=== PATIENT | male | born 1995 | race Caucasian/White ===

== ENCOUNTER 2024-11-19 20:18 | Emergency (ER) | payer OTHER, SELFPAY ==
[2024-11-19 20:45] VITALS: BP 111/62; PULSE 120; RESP 18; TEMP 37.3; O2SAT 100
[2024-11-19 21:27] LABS: Strep Group A RT-PCR NOT DETECTED (Negative)
[2024-11-19 21:37] VITALS: O2SAT 100
[2024-11-19 21:38] LABS: Influenza A QL RT-PCR Negative (Negative); Influenza B QL RT-PCR Negative (Negative); RSV RNA, RT-PCR Negative (Negative); SARS-CoV-2 RNA PCR Negative (Negative)
--- OUTSIDE RECORDS SUMMARY | 2024-11-19 21:58 | XMS_ITS | Clinical Summary ---
Author Organization [facility] Address [address] [place] [address] Care Team Providers Care Director Of Vocational Guidance Name Role Phone Gabby Miranda MD, Ponce Primary Care Provider Social History Tobacco Use Types Packs/Day Years Used Date Smoking Tobacco: Never Assessed Sex and Gender Information Value Date Recorded Sex Assigned at Not on file Legal Sex Male 8:11 PM CDT Gender Identity Not on file Sexual Orientation Not on file Plan of Treatment Health Maintenance Due Date Last Done Comments Annual Physical 02/06/1996 Hepatitis C 2011 DTaP, Tdap and Td Vaccines ( 1 - Tdap) 02/06/2012 Hepatitis B Vaccines (1 of 3 - 19+ 3-dose series) 02/06/2012 COVID-19 Vaccine (2023-2 5 season) 2024 Influenza Adult (#1) 2024 HPV Vaccines Aged Out No longer eligi ble based on patient's age to complete this topic Meningococcal B Vaccine Aged Out No l onger eligible based on patient's age to complete this topic Meningococcal Vaccine Aged Out No ese gil eligible based on patient's age to complete this topic Pneumococcal Vaccine: Pediat rics (0 to 5 Years) and At-Risk Patients (6 to 64 Years) Aged Out No longer eligible b ased on patient's age to complete this topic RSV Immunizations Under 20 Months Aged Out No longer eligible based on patient's age to complete this topic Care Teams Director Of Vocational Guidance Relationship Specialty Start Date End Date Ponce Pierre MD [address] [address] PCP - General 11/15/11
--- OUTSIDE RECORDS SUMMARY | 2024-11-19 21:58 | XMS_ITS | Encounter Summary ---
Author Name [facility] Organization [facility] [place] Address [address] [place] [address] Care Team Providers Care Physician Assistant Name Role Phone BARBARA BAH Primary Care Provider Unavailab le Selected Encounter This section includes the information on record at OR for the Encounter. Date/Time Encounter Type Encounter Description Reason Pro vider Source Jun 27, 2024 02:42 PM Outpatient Encounter COMMUNITY CARE CONSULT IHE Encounter Template Text not used by OR Plan of Treatment: Future Appointments (+ 6 months) and Future Tests (+/- 45 days) The Plan of Treatment section includes future care activities for the patient from all OR treatmentfacilities. This section includes future appointments and future orders which are active, pending or scheduled. Future Appointments This section includes appointments that were scheduled to occur 6 months from the date of the Encounter, up to a maximum of 20 appointments. The data comes from all OR treatment facilities. Appointment Date/Time Appointment Type Appointme nt Facility Name Jul 11, 2024 09:30 AM AMBULATORY - MEDICINE . [facility] Sep 05, 2024 11:00 AM AMBULATORY - NONE [facility] Sep 27, 2024 09:30 AM AM[facility]ULATORY - SUR[facility]ERY [facility] Oct 04, 2024 11:30 AM [facility]UL[facility] Oct 27, 2024 09:30 AM [facility]ULATORY - [facility] Nov 09, 2024 12:30 PM AMBULATORY - SURGERY [facility] Dec 21, 2024 12:30 PM AMBULATORY - SURGERY [facility] Social History: Smoking Status (Most current) and Tobacco Use (All prior to encounter date) This section includes the most current, and the historical, smoking and tobacco- related health factors from the OR facility where the Encounter took place. Current Smoking Status This section includes the most current smoking, or tobacco-related health factor, from the OR facility where the Encounter took place. Date/Time Current Smoking Status Comment Facil ity Jan 23, 2023 01:36 PM VA-TOBACCO NEVER USED [facility] Advance Directives: All historical and current Section Date Range: From patient's date of to the date document was created. This section includes ALL of a patient's completed or amended [place] Advance and Rescinded Directives. The entries below indicate that a directive exists for the patient, but an actual copy is not included with this document. The data comes from all OR facilities. Date Advance Directives Provider Source Aug 30, 2021 ADVANCE DIRECTIVE KURTIS CHACON Lavell [facility] Encounter Notes: All associated encounter notes This section contains the clinical notes associated to the Encounter. Date/Time Encounter Note(s) Provider Source Jun 27, 2024 02:42 PM LETTERS: LOCAL TITLE: [facility]-REQUEST FOR SERVICES (RFS) LETTER ST STANDARD TITLE: LETTERS DATE OF NOTE: JUN 27, 2024@14:42 ENTRY DATE: JUN 27, 2024@14:42:08 AUTHOR: XAVIER MORRELL COSIGNER: URGENCY: STATUS: COMPLETED [facility] [address] [place] [address] [facility] [address] [place] [address] Dear Provider, Information: Patient Name: ERNST OLVERA Date of : Jan [facility] Dental Service has received the request [id number] 01 PERIO MAINTENANCE D1206 01 TOPICAL APPLICATION OF FLUORIDE VARNISH D0274 01 BITEWING-FOUR RADIOGRAPHIC IMAGES D0120 01 PERIO ORAL EVAL-EST PT from you for services that were not originally authorized in the [facility] Administration for this . Upon review, the following determination has been made: Service has been approved. (Authorization #[id number]) Should you have questions, please contact us at [phone] to speak with a patient family service caseworker. As a reminder, if applicable, return medical records within 30 days for routine services. Sincerely, XAVIER MORRELL [facility] X[facility]IER RE[facility]
--- OUTSIDE RECORDS SUMMARY | 2024-11-19 21:58 | XMS_ITS | Continuity of Care Document ---
Author Organization [facility] Address [address] [place] [address] Phone Care Team Providers Care Skilled Nursing Facility Counselor Name Role Phone Shekhar Alvarez Unavailable Unavailable Allergies, Adverse Reactions, Alerts Substance Reaction Status Criticality No Known Allergies Active No Inform ation Medications Medication Instructions Dosage Effective Dates (start - stop) Status Comments cyclobenzaprine 5 mg tablet take 1 (5MG) by Oral route 3 times every day as needed for spasm 5 MG - Active Phenergan 12.5 MG take 1 tablet every 8 hours if needed for nausea - Active Percocet 5 mg-325 mg tablet take 1 to 2 tablets by oral route every 4 - 6 hours as needed - Active Do not fill before 12/16/2017 naproxen 375 mg tablet take 1 tablet by oral route 2 times every day with food 375 MG - Active naproxen 250 mg tablet take 1 tablet by oral route every day with food 250 MG - Active Procedures Procedure Date Global/Post-op Global/Post-op Global/Post-op Arthroscopy Shoulder Debridement Ex Interest Pd By Ins. Co. Arthroscopy Shoulder Debridement Ex Est. Patient Level 3 Est. Patient Level 3 Arthrocentesis/joint Inj. Major 018 Inj Methylprednisolone Acetate,80mg New Patient Ov Level 3 Shoulder (2 Views) Advance Directives Directive Yes / No Effective Date File Name No Information Encounters Encounter Description Practice Location Reason(s) For Visit Diagnoses Date Provider Providers Copied on Encounter [facility], [address] [place] [address], [id number], [place] tel:[phone] MIL [facility] Encounter for other orthopedic aftercare 3-201 8 [place] PAC Shekhar. [address], [place], [place], [id number] , [place]. tel:[phone] Referring Provider: Payton Anderson MD, [address] [place], [address] . tel:[phone] [facility], [address] [place] [address], [id number], [place] tel:[phone] [address] [facility] [address] Encounter for other orthopedic aftercare 0201 8 Monica PINEDA Payton. [address] [place], [place], [id number] , [place]. tel: [phone] Referring Provider: Payton Anderson MD, [address] [place], [address] . tel:[phone] [facility], [address] [place] [address], [id number], [place] tel:[phone] 01 MIL [facility] Encounter for other orthopedic aftercare 2201 8 Jigar PAC Shekhar. [address], [place], [place], [id number] , [place]. tel: [phone] Referring Provider: Payton Anderson MD, [address] [place], [address] . tel:[phone] [facility], [address] [place] [address], [id number], [place] tel:[phone] 01 MIL [place] Pain in right shoulder 9-201 8 Jigar PAC Shekhar. [address], [place], [place], [id number] , [place]. tel: [phone] Referring Provider: Payton Anderson MD, [address] [place], [address] . tel:[phone] [facility], [address] [place] [address], [id number], [place] tel:[phone] 01 MIL [place] No Information 9-201 8 Monica PINEDA Payton. [address] [place], [place], [id number] , [place]. tel: [phone] Referring Provider: Payton Anderson MD, [address] [place], [address] . tel:[phone] [facility], [address] [place] [address], [id number], [place] tel:[phone] 01 MIL [place] No Information 8-201 8 Monica PINEDA Payton. [address] [place], [place], [id number] , [place]. tel: [phone] Est. Patient Level 3 [facility], [address] [place] [address], [id number], [place] tel:[phone] 01 MIL O[place] Bicipital tendinitis, right shoulderPain in right shoulder Apr-0 6201 8 Monica PINEDA Payton. [address] [place], [place], [id number] , [place]. tel: [phone] Referring Provider: Payton Anderson MD, [address] [place], [address] . tel:[phone] Est. Patient Level 3 [facility], [address] [place] [address], [id number], [place] tel:[phone] 01 MIL [place] Pain in right shoulderBicipit al tendinitis, right shoulder Oct- 6-201 8 Monica PINEDA Payton. [address] [place], [place], [id number] , [place]. tel: [phone] Referring Provider: Payton Anderson MD, [address] [place], [address] . tel:[phone] New Patient Ov Level 3 [facility] [place], [address] [facility] [facility], [place], [place], [id number], [place] tel:[phone] 01 MIL [place] Pain in right shoulder 8 Monica Cain. [address] [place], [place], [id number] , [place]. tel: [phone] Referring Provider: Payton Anderson MD, [address] [place], [address] . tel:[phone] Family History Family Member Type Diagnosis Age At Onset No Information Payers Payer name Insurance type Covered constitution party ID Authoriza tion(s) No Information Social History Type Description Quantity Date Captured Comments Sex Male Smoking Status No Information Chief Complaint And Reason For Visit No Information Reason For Referral Reason For Referral No Information Plan Of Treatment Date Type Action Status Future Order: Lab Order Shoulder -RT-AP/Outlet/Axillary ([id number]), Appointment on: , Sent on: Sent History Of Present Illness Encounter Date Complaint History Of Prese nt Illness No Information Functional Status Date Functional Assessmen t No Information Instructions Date Instruction Additional Infor mation No Information Assessments Type Assessment Date No Information Patient Care Teams Name Effective Dates (start - stop) Status Members No Information
--- OUTSIDE RECORDS SUMMARY | 2024-11-19 21:58 | XMS_ITS | Encounter Summary ---
Author Name [facility] Organization [facility] [place] Address [address] [place] [address] Care Team Providers Care Pocket Stitcher Name Role Phone BARBARA BAH Primary Care Provider Unavailab le Selected Encounter This section includes the information on record at [place] for the Encounter. Date/Time Encounter Type Encounter Description Reason Pro vider Source Sep 30, 2024 06:09 AM Outpatient Encounter GENERAL INTERNAL MEDICINE IHE Encounter Template Text not used by [place] Plan of Treatment: Future Appointments (+ 6 months) and Future Tests (+/- 45 days) The Plan of Treatment section includes future care activities for the patient from all [place] treatmentfacilities. This section includes future appointments and future orders which are active, pending or scheduled. Future Appointments This section includes appointments that were scheduled to occur 6 months from the date of the Encounter, up to a maximum of 20 appointments. The data comes from all [place] treatment facilities. Appointment Date/Time Appointment Type Appointme nt Facility Name Oct 04, 2024 11:30 AM AMBULATORY - SURGERY [facility] Oct 27, 2024 09:30 AM AMBULATORY - SURGERY [facility] Nov 09, 2024 12:30 PM AMBULATORY - SURGERY [facility] Dec 21, 2024 12:30 PM AMBULATORY - SURGERY . [facility] Feb 01, 2025 10:30 AM AMBULATORY - SURGERY [facility] Active, Pending, and Scheduled Orders This section includes a listing of several types of active, pending, and scheduled orders, including clinic medications orders, diagnostic test orders, procedure orders and consult orders; where the start date of the order is 45 days before the date of the Encounter or 45 days after the date of theEncounter. The data comes from all [place] treatment facilities. Test Date/Time Test Type Test Details Facility Name Nov 10, 2024 07:59 AM Consult Order [facility] GEN Cons Supervisor Un[employer] Choice [facility] Lab Results: +/- 30 days of the encounter This section includes the Chemistry and Hematology Lab Results on record with [place] for the patient. Radiology Reports and Pathology Reports are provided separately, in subsequent sections. Lab Results This section contains the Chemistry/Hematology Results that were resulted 30 days before or 30 daysafter the date of the Encounter. Date/Time Source Result Type Result - Unit Interpretation Reference Range Comment Sep 27, 2024 10:14 AM [facility] BOB(STL) Specimen Type: SERUM Comment: Test Performed by [facility], [employer], [address] [place] [address] Austin Joseph M.D., Ph.D., Director of Laboratories , CLIA [id number] Ordering Provider: RENE BECK Report Released Date/Time: Sep 27, 2024 10:03 AM Reporting Lab: [facility] [address] [facility] [address] Performing Lab: [facility] [address] [facility] BOB(STL) 30 U/L 9-Sep 27, 2024 10:14 AM [facility] HLA B27 Ag Specimen Type: BLOOD Comment: Test Performed by [facility], [employer], [address] [place] [address] Austin Joseph M.D., Ph.D., Director of Laboratories , CLIA [id number] Ordering Provider: RENE BECK Report Released Date/Time: Sep 27, 2024 10:03 AM Reporting Lab: [facility] [address] [place] [address] Performing Lab: [facility] [address] [facility] [address] HLA B27 Ag Negative Negative Sep 27, 2024 10:14 AM [facility] ANTI-NUCLEAR ANTIBODY (STL-PB) Specimen Type: SERUM No comment entered. Ordering Provider: RENE BECK Report Released Date/Time: Sep 27, 2024 10:03 AM Reporting Lab: [address] [address] Performing Lab: [address] [address] ANTI-NUCLEAR ANTIBODY (STL-PB) NEGATIVE Sep 27, 2024 10:14 AM [facility] SERODIA TP-PA Specimen Type: SERUM No comment entered. Ordering Provider: RENE BECK Report Released Date/Time: Sep 27, 2024 10:03 AM Reporting Lab: [facility] [address] [place] [phone] Performing Lab: [address] [address] SERODIA TP-PA Non React Sep 27, 2024 10:14 AM [facility] RAPID PLASMA REAGIN (RPR) Specimen Type: SERUM No comment entered. Ordering Provider: RENE BECK Report Released Date/Time: Sep 27, 2024 10:03 AM Reporting Lab: [address] [address] Performing Lab: [address] [address] RAPID PLASMA REAGIN (RPR) NON-REACTIVE NONREACTIVE Sep 27, 2024 10:14 AM [facility] LYME AB PNL (IGM&IGG) Specimen Type: SERUM No comment entered. Ordering Provider: RENE BECK Report Released Date/Time: Sep 27, 2024 10:03 AM Reporting Lab: [facility] [address] [facility] [address] Performing Lab: [facility] [address] [facility] [address] LYME AB IGM NEG NEGATIVE LYME AB IGG NEG NEGATIVE Sep 27, 2024 10:14 AM [facility] ESR ISED(STL) Specimen Type: BLOOD No comment entered. Ordering Provider: RENE BECK Report Released Date/Time: Sep 27, 2024 10:03 AM Reporting Lab: [facility] [place] [address] Performing Lab: [facility] [address] ESR ISED(STL) <1 mm/h 0-14 Sep 27, 2024 10:14 AM [facility] CRP Specimen Type: PLASMA No comment entered. Ordering Provider: RENE BECK Report Released Date/Time: Sep 27, 2024 10:03 AM Reporting Lab: [facility] [address] [place] [phone] Performing Lab: [facility] [address] [place] [phone] CRP 0.2 mg/dL 0-0.5 Sep 27, 2024 10:14 AM [facility] RHEUMATOID FACTOR (STL) Specimen Type: SERUM No comment entered. Ordering Provider: RENE BECK Report Released Date/Time: Sep 27, 2024 10:03 AM Reporting Lab: [facility] [address] [place] [phone] Performing Lab: [address] [address] RHEUMATOID FACTOR (STL) <15.0 0-29 Sep 27, 2024 10:14 AM [facility] CBC Specimen Type: BLOOD No comment entered. Ordering Provider: RENE BECK Report Released Date/Time: Sep 27, 2024 10:03 AM Reporting Lab: [facility] [address] Performing Lab: [facility] [address] WBC 5.6 10*3/uL 3.6-11.2 RBC 4.96 10*6/uL 4.10-5.70 HGB 15.0 g/dL 13.1-16.8 HCT 43.3 38.2-48.4 MCV 87.3 fL 80.0-100.0 MCH 30.2 pg 27.0-34.0 MCHC 34.6 g/dL 33.0-36.0 PLT 185 10*3/uL 150-400 MPV 9.6 fL 7.5-11.2 RDW 11.8 11.8-15.1 LYMPHOCYTES, AUTO % 37 MONOCYTES, AUTO % 6 NEUTROPHILS, AUTO % 55 EOSINOPHILS, AUTO % 1 BASOPHILS, AUTO % 1 LYMPHOCYTES, ABSOLUTE 2.06 10*3/uL 0.77-4.50 MONOCYTES, ABSOLUTE 0.31 10*3/uL 0.19-0.80 NEUTROPHILS, ABSOLUTE 3.08 10*3/uL 2.10-8.00 EOSINOPHILS, ABSOLUTE 0.06 10*3/uL 0.00-0.60 BASOPHILS, ABSOLUTE 0.04 10*3/uL 0.00-0.20 Social History: Smoking Status (Most current) and Tobacco Use (All prior to encounter date) This section includes the most current, and the historical, smoking and tobacco- related health factors from the [place] facility where the Encounter took place. Current Smoking Status This section includes the most current smoking, or tobacco-related health factor, from the [place] facility where the Encounter took place. Date/Time Current Smoking Status Comment Facil ity Jan 23, 2023 01:36 PM VA-TOBACCO NEVER USED [facility] Advance Directives: All historical and current Section Date Range: From patient's date of to the date document was created. This section includes ALL of a patient's completed or amended [place] Advance and Rescinded Directives. The entries below indicate that a directive exists for the patient, but an actual copy is not included with this document. The data comes from all [place] facilities. Date Advance Directives Provider Source Aug 30, 2021 ADVANCE DIRECTIVE KURTIS CHACON Lavell [facility] Encounter Notes: All associated encounter notes This section contains the clinical notes associated to the Encounter. Date/Time Encounter Note(s) Provider Source May 19, 2024 06:09 AM NONVA CONSULT: LOCAL TITLE: COMMUNITY CARE-CONSULT RESULT NOTE STL STANDARD TITLE: NONVA CONSULT DATE OF NOTE: MAY 19, 2024@06:09 ENTRY DATE: SEP 30, 2024@06:10:16 AUTHOR: DANIELLE DAVIS EXP COSIGNER: URGENCY: STATUS: COMPLETED The following Community Care consult has been completed. See scanned document for report. Date of Service: Apr Place where service occurred: [facility] Community Care Consult Results Dental Comment: General Community provider/Non-VA documentation associated with this consult has been previously incorporated into the medical record and is currently linked to the following progress note in CPRS: Note Title: COMMUNITY CARE-CONSULT RESULT NOTE STL Date of Note: 05/19/2024 Author: KIMO TINOCO Consult Number: [id number] /es/ DANIELLE DAVIS [facility] CORPORATE SERVICES MANAGER Signed: 09/30/2024 06:12 DANIELLE DAVIS [facility]
--- OUTSIDE RECORDS SUMMARY | 2024-11-19 21:58 | XMS_ITS | Continuity of Care Document ---
Author Name [facility] Organization [facility] Care Team Providers Care Hand Crocheter Name Role Phone [facility] Unavailable Unavailable Problems Combined list of problems from [facility] and [facility] facilities. It does not include entries that were removed or entered in error. 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, right eye Active Diagnosis [facility] Diagnosis: ICD-10-CM Z23 Encounter for immunization Active Diagnosis [facility] Diagnosis: ICD-10-CM Z71.9 Counseling, unspecified Active Diagnosis [facility] Diagnosis: ICD-10-CM H52.4 Presbyopia Active Diagnosis [facility] Diagnosis: ICD-10-CM J02.0 Streptococcal pharyngitis Active Diagnosis [facility] Diagnosis: ICD-10-CM Z20.822 Contact with and (suspected) exposure to COVID-19 Active Diagnosis [facility] Diagnosis: ICD-10-CM H53.9 Unspecified visual disturbance Active Diagnosis [facility] Medications Combined list of outpatient medications from [facility] and [facility] facilities.Medications provided include 1) outpatient medications from the last 15 months, and 2) patient-reported medications. Medication Details Route Status Patient Instructions Prescription Expires Prescription Number Last Dispense Date Ordering Provider Order Date Order Qty Source ALUMINUM CL HEXAHYDRATE 20% SOLN,TOP APPLY SPARINGL Y TO AFFECTED AREA(S) ONCE A DAY NEEDED TOPICA L 02/27/2024 [id number] ARANZA LUCAS A 2022 35 [facility] AMOXICILLIN TRIHYDRATE 500MG CAP TAKE 1 CAPSULE BY MOUTH THREE TIMES A DAY ORAL ACTIVE LAMBERTO HOPKINS MERRITT Morel 2023 [facility] FLUOROMETHO LONE 0.1% SUSP,OPH INSTILL 1 DROP IN RIGHT EYE FOUR TIMES A DAY FOR OCULAR INFLAMMA TION - APPLY TO INSIDE OF LOWER LID. CLOSE EYE FOR 1-2 MINUTES AND ROLL EYEBALL IN ALL DIRECTIO NS. OPHTHA LMIC 10/27/2024 [id number] 5 LOYDA BECK THI 2024 10 [facility] PREDNISOLON E ACETATE 1% SUSP,OPH INSTILL 1 DROP IN RIGHT EYE FOUR TIMES A DAY FOR EYE INFLAMMA TION OPHTHA LMIC 11/24/2023 [id number] 4 ADELINE LOJA E 2023 10 [facility] Allergies, Adverse Reactions, Alerts Combined list of allergies from [facility] and [facility] facilities. It does not include entries that were removed or entered in error. Substance Category Reaction Severity Reaction type Status Date Reported Comments Source SEASONAL ALLERGIES Propensity to adverse reaction (finding) active 8 [facility] Immunizations Combined list of available immunizations from the Department of Defense and Veterans Affairs facilities. Immunization Series Date Given Administered By Site Reaction Lot Number CVX Code Drug Golf Instructor Status Comments Source COVID-19 (PFIZER), MRNA, LNP-S, PF, JOHANNA-SUCROSE, 30 MCG/0.3 ML (AGES 12+ YEARS) 2023 RED DEL CID RIGHT DELTO ID [id number] 309 complet ed [facility] INFLUENZA, SPLIT VIRUS, TRIVALENT, PF 2023 RED DEL CID LEFT DELTO ID [id number] 140 complet ed [facility] TDAP 2020 115 complet ed [facility] INFLUENZA, INJECTABLE, MDCK, PRESERVATIVE FREE, QUADRIVALENT 2020 171 complet ed Partner:Roland PARKSiva.Admin istered by:[facility] [id number]) .[facility]:[id number].A ddress:[address] [facility] .[id number] Dosage: ML 0.5 [facility] COVID-19 (MODERNA), MRNA, LNP-S, PF, 100 MCG/0.5 ML DOSE 2 2020 207 complet ed MOD; [id number]; 1 [facility] COVID-19 (MODERNA), MRNA, LNP-S, PF, 100 MCG/0.5 ML DOSE 1 2020 207 complet ed MOD; [id number]; 1 [facility] INFLUENZA, INJECTABLE, QUADRIVALENT, PRESERVATIVE FREE 2018 150 complet ed [facility] HPV9 2 2018 165 complet ed [facility] HPV (PAPILLOMAVIR US-GARDISIL) (HISTORICAL) 2018 62 complet ed [facility] INFLUENZA, INJECTABLE, QUADRIVALENT, PRESERVATIVE FREE 2017 150 complet ed [facility] HPV, UNSPECIFIED FORMULATION 1 2014 137 complet ed [facility] Results Combined list of recent chemistry, hematology and other laboratory results from [facility] of Defense and [facility], ranging from 15 months to all on record, depending upon the facility. Order Name Results Value Reference Range Date Interpretation Specimen Comments Source ANCA/Vas culitide s (STL) MYELOPEROX IDASE AB [PRESENCE] IN SERUM BY IMMUNOASSA Y NEGATIVE 11/09 Specimen Type: SERUM No comment entered. Ordering Provider: YEFRI ZAMBRANO Report Released Date/Time: Nov 09, 2024 01:13 PM Reporting Lab: [facility] [address] [place] [address] Performing Lab: [facility] [address] [address] [facility] ANCA/Vas culitide s (STL) PROTEINASE 3 AB [PRESENCE] IN SERUM BY IMMUNOASSA Y POSITIVE 11/09 Specimen Type: SERUM No comment entered. Ordering Provider: YEFRI ZAMBRANO Report Released Date/Time: Nov 09, 2024 01:13 PM Reporting Lab: [address] Performing Lab: [place] [id number] HLA B27 Ag HLA-B27 [PRESENCE] BY FLOW CYTOMETRY (FC) Negative 09/27 Specimen Type: BLOOD Comment: Test Performed by [employer] [facility], [address] [place] [address] Austin Joseph M.D., Ph.D., Director of Laboratorie s , CLIA [id number] Ordering Provider: JFEFREY BECK Report Released Date/Time: Sep 27, 2024 10:03 AM Reporting Lab: [address] [address] Performing Lab: [address] [facility] BOB(STL) ANGIOTENSI N CONVERTING ENZYME [ENZYMATIC ACTIVITY/V OLUME] IN SERUM OR PLASMA 30 U/L 9 - 67 09/27 Specimen Type: SERUM Comment: Test Performed by [employer] [facility], [address] [place] [address] Austin Joseph M.D., Ph.D., Director of Laboratorie s , CLIA [id number] Ordering Provider: JEFFREY BECK Report Released Date/Time: Sep 27, 2024 10:03 AM Reporting Lab: [address] [address] Performing Lab: [address] [facility] ANTI-NUC LEAR ANTIBODY (STL-PB) NUCLEAR AB [PRESENCE] IN SERUM NEGATIVE 09/27 Specimen Type: SERUM No comment entered. Ordering Provider: JEFFREY BECK Report Released Date/Time: Sep 27, 2024 10:03 AM Reporting Lab: [address] [address] Performing Lab: [place] [id number] SERODIA TP-PA TREPONEMA PALLIDUM AB [PRESENCE] IN SERUM Non React 09/27 Specimen Type: SERUM No comment entered. Ordering Provider: JEFFREY BECK Report Released Date/Time: Sep 27, 2024 10:03 AM Reporting Lab: [place] [phone] Performing Lab: [place] [id number] RAPID PLASMA REAGIN (RPR) REAGIN AB [PRESENCE] IN SERUM BY RPR NON-REAC TIVE 09/27 Specimen Type: SERUM No comment entered. Ordering Provider: JEFFREY BECK Report Released Date/Time: Sep 27, 2024 10:03 AM Reporting Lab: [address] [address] Performing Lab: [address] [phone] [address] LYME AB PNL (IGM&IGG ) BORRELIA BURGDORFER I IGM AB [PRESENCE] IN SERUM OR PLASMA BY IMMUNOASSA Y NEG 09/27 Specimen Type: SERUM No comment entered. Ordering Provider: JEFFREY BECK Report Released Date/Time: Sep 27, 2024 10:03 AM Reporting Lab: [address] [address] Performing Lab: [address] [phone] LYME AB PNL (IGM&IGG ) BORRELIA BURGDORFER I IGG AB [PRESENCE] IN SERUM OR PLASMA BY IMMUNOASSA Y NEG 09/27 Specimen Type: SERUM No comment entered. Ordering Provider: JEFFREY BECK Report Released Date/Time: Sep 27, 2024 10:03 AM Reporting Lab: [place] [address] Performing Lab: [address] ESR ISED(STL ) ERYTHROCYT E SEDIMENTAT ION RATE <1mm/h 0 - 14 09/27 Specimen Type: BLOOD No comment entered. Ordering Provider: JEFFREY BECK Report Released Date/Time: Sep 27, 2024 10:03 AM Reporting Lab: [facility] [place] [address] Performing Lab: [facility] [address] CRP C REACTIVE PROTEIN [MASS/VOLU ME] IN SERUM OR PLASMA BY HIGH SENSITIVIT Y METHOD 0.2 mg/dL 0 - 0.5 09/27 Specimen Type: PLASMA No comment entered. Ordering Provider: JEFFREY BECK Report Released Date/Time: Sep 27, 2024 10:03 AM Reporting Lab: [place] [phone] Performing Lab: [place] [id number] RHEUMATO ID FACTOR (STL) RHEUMATOID FACTOR [UNITS/VOL UME] IN SERUM OR PLASMA <15.0 0 - 29 09/27 Specimen Type: SERUM No comment entered. Ordering Provider: JEFFREY BECK Report Released Date/Time: Sep 27, 2024 10:03 AM Reporting Lab: [address] [place] [address] Performing Lab: [facility] [address] [address] [facility] Encounters Combined list of: 1) Encounters from Department of [facility] Affairs facilities going backup to the last 18 months, not all ID inpatient encounters are included; 2) Encounters from the Department of [facility] facilities going backup to 280 months. Location Location Details Encounter Type Encounter Number Reason For Visit Attending Provider ADM Date DC Date Status Disposition Source [facility] Outpatient Encounter [id number] 07/28 [facility] Outpatient Encounter [id number] 07/28 [facility] Outpatient Encounter [id number] DAVID SANDERS 07/28 [facility] OFFICE O/P EST SF 10-19 MIN [id number] Diagnos is: ICD-10- CM H53.9 Unspeci fied visual disturb Roland Hobbs ONSTANCE D 07/28 [facility] EYE EXAM NEW PATIENT [id number] Diagnos is: ICD-10- CM H15.101 Unspeci fied episcle ritis, right eye SCHAFERS,A LLISON E 07/31 [facility] Outpatient Encounter [id number] 08/14 [facility] INTRM OPH EXAM EST PATIENT [id number] Diagnos is: ICD-10- CM H15.101 Unspeci fied episcle ritis, right eye SCHAFERS,A LLISON E 08/25 [facility] Outpatient Encounter [id number] 09/[address] [facility] Outpatient Encounter [id number] 09/22 [facility] OFFICE O/P EST LOW 20 MIN [id number] Diagnos is: ICD-10- CM H15.101 Unspeci fied episcle ritis, right eye PURVI,Jonathan LLISON E 09/25 [facility] Outpatient Encounter [id number] 09/29 [facility] SARS-COV-2 COVID-19 [place] [id number] Diagnos is: ICD-10- CM Z20.822 Contact with and (suspec clay) exposur e to COVID-1 9 CASS BAH 09/29 [facility] Outpatient Encounter [id number] 09/30 [facility] Outpatient Encounter [id number] Diagnos is: ICD-10- CM J02.0 Strepto coccal pharyng itis CARLOS HOPKINS Lavell Morel 09/30 [facility] OFFICE O/P EST LOW 20 MIN [id number] Diagnos is: ICD-10- CM H15.101 Unspeci fied episcle ritis, right eye PURVIJonathan LLISON E 10/22 [facility] Outpatient Encounter [id number] 11/08 [facility] Outpatient Encounter [id number] 01/31 [facility] INTRM OPH EXAM EST PATIENT [id number] Diagnos is: ICD-10- CM H52.4 CHAPINCITO Vinson THI 02/11 [facility] Outpatient Encounter [id number] 02/25 [facility] Outpatient Encounter [id number] 06/08 [facility] HC PRO PHONE CALL 5-10 MIN [id number] Diagnos is: ICD-10- CM Z71.9 Top Trimmer monisha, Jim Lee 06/09 [facility] Outpatient Encounter [id number] YVONNE MAYFIELD M 06/17 [facility] Outpatient Encounter [id number] 06/20 [facility] Outpatient Encounter [id number] 06/22 [facility] Outpatient Encounter [id number] 06/27 [facility] Outpatient Encounter [id number] 07/07 [facility] IMMUNIZATI ON ADMIN [id number] Diagnos is: ICD-10- CM Z23 Encount er for immuniz NILES Thacker ISFILOMENA M 07/[address] [facility] Outpatient Encounter [id number] 09/05 [facility] OFFICE O/P EST LOW 20 MIN [id number] Diagnos is: ICD-10- CM H15.101 Unspeci fied episcle ritis, right eye CHAPINCITO BECK THI 09/27 [facility] Outpatient Encounter [id number] 09/30 [facility] OFFICE O/P EST LOW 20 MIN [id number] Diagnos is: ICD-10- CM H15.101 Unspeci fied episcle ritis, right eye CHAPINCITO BECK THI 10/04 [facility] Outpatient Encounter [id number] OFE DOUGLAS J 10/14 [facility] Outpatient Encounter [id number] OFE DOUGLAS J 10/17 [facility] OFFICE O/P EST LOW 20 MIN [id number] Diagnos is: ICD-10- CM H15.101 Unspeci fied episcle ritis, right eye CHAPINCITO BECK 10/27 [facility] Outpatient Encounter [id number] 11/07 [facility] OFFICE O/P EST LOW 20 MIN [id number] Diagnos is: ICD-10- CM H15.101 Unspeci fied episcle ritis, right eye EVA ZAMBRANO 11/09 [facility] Social History Combined list of available smoking, tobacco, and other social history from [facility] of [facility] and [facility] facilities. Social History Type Response Date Comment Sourc e Tobacco smoking status NHIS VA-TOBACCO NEVER USED 01/23/2023 [facility] History of tobacco use ID-TOBACCO FORMER USER 07/03/2021 [facility] of [facility]2020 [facility] History of tobacco use ID-TOBACCO FORMER USER 06/28/2018 [facility] History of tobacco use ID-TOBACCO FORMER USER 05/19/2018 [facility] Plan of Care List of future care activities from [facility] facilities. Additional future care activities may be listed in the Assessment and Plan section. Date/Time Care Activity Care Activity Detail Facili ty 12/21/2024 AMBULATORY - SURGERY AMBULATORY - SURGERY [facility] Advance Directives List of completed, amended, or rescinded Advance Directives on record at [facility] facilities. An actual copy of the Directive is not included. Date Advance Directive Provider Source 08/30/2021 ADVANCE DIRECTIVE KURTIS CHACON [facility]
[2024-11-19] MEDS: ACETAMINOPHEN 500 MG TABLET 1000 MG PO (22:07)
[2024-11-19] MEDS: IBUPROFEN 600 MG TABLET PO (22:08)
--- NOTE | 2024-11-19 22:10 | ED_ITS ---
HPI - URI/Sore Throat General Chief Complaint: Upper Respiratory Infection Stated Complaint: Fever, cough, sore throat Time Seen by Provider: 11/19/24 21:22 Source: patient Mode of arrival: ambulatory Limitations: no limitations History of Present Illness HPI Narrative: Patient is a 29-year-old male who presents the ED with report of URI symptoms. Patient reports he woke up this morning with a sore throat, body aches, headache, fatigue, fever. Notes son has had similar symptoms. He presents today with his son. Took Tylenol around 11:00 a.m. for his symptoms. Has not had any medications since then. Denies nausea, vomiting, chest pain, shortness breath, cough. Related Data Allergies Allergy/AdvReac Type Severity Reaction Status Date / Time No Known Allergies Allergy Verified 11/19/24 20:19 Review of Systems Review of Systems: All systems reviewed & are unremarkable except as noted in HPI. All systems reviewed & are unremarkable except as noted in HPI and below Exam Narrative: GENERAL: Well appearing, well-nourished, non-toxic, in no acute distress. HEAD: Normocephalic, atraumatic. ENT: Mild posterior pharynx erythema. No tonsillar hypertrophy or exudate. Uvula midline and nonedematous. RESPIRATORY: Airway patent, respirations nonlabored. Clear to auscultation bilaterally, no rales, rhonchi, wheezing. No focal lung sounds. CARDIOVASCULAR: Borderline tachycardic with regular rhythm without murmurs, rubs, or gallops. MUSCULOSKELETAL: Moves all extremities. No gross deformities. SKIN: Warm, dry, normal color. NEURO: A&O X3. Speech clear. PSYCHIATRIC: Appropriate mood and affect. Normal interaction. Course Vital Signs Vital signs: Vital Signs Temperature 99.2 F 11/19/24 20:45 Pulse Rate 120 H 11/19/24 20:45 Respiratory Rate 18 11/19/24 20:45 Blood Pressure 111/62 11/19/24 20:45 Pulse Oximetry 100 11/19/24 20:45 Oxygen Delivery Room Air 11/19/24 20:45 Temperature 99.2 F 11/19/24 20:45 Pulse Rate 120 H 11/19/24 20:45 Respiratory Rate 18 11/19/24 20:45 Blood Pressure 111/62 11/19/24 20:45 Pulse Oximetry 100 11/19/24 21:37 Oxygen Delivery Room Air 11/19/24 21:37 MDM - URI/Sore Throat MDM Narrative Medical decision making narrative: Patient presented to ED with URI symptoms that began this morning. Son with si milar symptoms. Patient borderline tachycardic and febrile upon arrival. Given Tylenol and ibuprofen. Influenza, RSV, COVID, strep negative. Patient's son present in the ED with patient. Son tested positive for group A strep. Will prophylactically treat patient for strep given close exposure. Given 1st dose of amoxicillin in the ED. Advised to continue Tylenol and ibuprofen as needed for pain, given strict return precautions. He is in agreement with plan. Feels comfortable going home. Discharged in stable condition. Medical Records Attestation: I reviewed the patient's medical records. Lab Data Attestation: I reviewed the patient's lab results. Labs: Lab Results 11/19/24 Range/Units 20:50 Influenza A (RT-PCR) Negative (Negative) Influenza B (RT-PCR) Negative (Negative) RSV (RT-PCR) Negative (Negative) SARS-CoV-2 RNA (RT-PCR) Negative (Negative) Group A Strep (PCR) Not detected (Negative) Discharge Plan Discharge Clinical Impression: Exposure to group A Streptococcus Upper respiratory infection Qualifiers: URI type: unspecified URI Qualified Code(s): J06.9 - Acute upper respiratory infection, unspecified Patient Disposition: Home, Self-Care Condition: Stable Instructions: Antibiotic Form, Strep Throat (ED), Viral Syndrome (ED), Cold Symptoms (ED) Additional Instructions: Take antibiotics as prescribed. Continue Tylenol and ibuprofen as needed for pain. Isolate at home as you are contagious. Stay well-hydrated at home. Recommend electrolyte rich fluids, Gatorade, Pedialyte, body armor. Recommend oejy-psj-jieobao cough and cold medicines for symptom relief as needed: Delsym, Mucinex, DayQuil, NyQuil, Sudafed, Robitussin, TheraFlu. Follow with primary care doctor upon resolution of symptoms. Return to the ED if you experience chest pain, difficulty swallowing or breathing, unable to keep down food or drink, severe swelling in throat, severe pain, or any other symptoms of concern. Patient Language: Latvian Prescriptions: New amoxicillin 500 mg capsule 500 mg PO Q12H 10 Days Qty: 20 0RF Follow-up/Referrals: UNKNOWN,DOCTOR [Primary Care Provider] - Time of Disposition: 22:13
[2024-11-19] MEDS: AMOXICILLIN 500 MG CAPSULE PO (22:24)
== END 2024-11-19 22:27 | disposition home or self-care (01) ==
PROVIDERS: Emergency Medicine; Emergency Provider Physician Assistant
DX: J06.9 Acute upper respiratory infection, unspecified (principal); Z20.818 Contact with and (suspected) exposure to other bacterial communicable diseases; Z20.822 Contact with and (suspected) exposure to COVID-19
CPT/HCPCS: 87637; 87651; 99283; A9270